=== PATIENT | male | born 1980 | race Caucasian/White ===

== ENCOUNTER 2017-03-05 09:40 | Emergency (ER) | payer OTHER ==
[2017-03-05 09:45] VITALS: BP 134/93; PULSE 77; TEMP 98; BMI 27.1
--- NOTE | 2017-03-05 09:54 | PDOC ---
Post Exposure HPI - General Chief Complaint: Blood/Body Fluid Exposure SJR Stated Complaint: needle stick Time Seen by Provider: 03/05/17 09:41 History Source: Patient Exam Limitations: No Limitations - History of Present Illness Initial Comments: 03/05/17 09:52 36 y/o male sustained a needle stick in the OR today, came in for further evaluation. States to be up to date with Tetanus and Hep B vaccination. Host is low risk for HIV. Patient had guard wire medeiros through skin of 4th and fifth fingers of left hand. No swelling. Bleeding controlled. Timing: just prior to arrival Severity: mild Exposed Location: Left: Finger(s) (4th and 5th) Past History - Past Medical History Allergies/Adverse Reactions: Allergies Penicillins Allergy (Verified 03/05/17 09:41) Home Medications: Ambulatory Orders Albuterol Sulfate [Ventolin Hfa] 2 puff IH [id number] PRN inhaler 01/18/16 Surgical History: Yes: No Surgical History - Immunization History Immunizations Up to Date: Yes - Social History Smoking Status: Current every day smoker Number of Ciarettes Per Day: 20 Alcohol Use: occasionally Drug Use: none Review of Systems - Review of Systems Able to Perform ROS?: Yes Is the patient limited [place] proficient: No Constitutional: No: Chills, Fever Respiratory: No: Cough, Shortness of Breath Cardiac (ROS): No: Chest Pain, Irregular Heart Rate, Palpitations Integumentary: No: Bruising, Erythema, Rash All Other Systems: Reviewed and Negative *Physical Exam - Vital Signs Last Vital Signs Temp Pulse Resp BP Pulse Ox 98 F 77 16 134/93 100 03/05/17 09:41 03/05/17 09:41 03/05/17 09:41 03/05/17 09:41 03/05/17 09:41 - Physical Exam General Appearance: Yes: Nourished, Appropriately Dressed. No: Apparent Distress HEENT: positive: EOMI, JAYCOB, Normal ENT Inspection Neck: positive: Trachea midline, Normal Thyroid, Supple Respiratory/Chest: positive: Lungs Clear, Normal Breath Sounds Cardiovascular: positive: Regular Rhythm, Regular Rate, S1, S2. negative: Murmur Vascular Pulses: Femoral (R): 4+, Femoral (L): 4+, Carotid (R): 4+, Carotid (L) : 4+, Dorsalis-Pedis (R): 4+, Doralis-Pedis (L): 4+ Lymphatic: negative: Adenopathy, Tenderness, Other Musculoskeletal: positive: Normal Inspection. negative: CVA Tenderness Extremity: positive: Normal Capillary Refill, Normal Inspection, Normal Range of Motion Integumentary: positive: Normal Color, Dry, Warm, Other (left 5th finger with puncture wound and 4th finger as well, no active bleeding, swelling or tenderness noted, no ecchymosis). negative: Swelling Neurologic: positive: yeast cake cutter II-XII NML intact, Fully Oriented, Alert, Normal Mood/ Affect, Normal Response, Motor Strength 5/5 Post Exposure - ED Protocol - Exposure Treatment Washing/Decontamination: Soap/Water Source Patient HIV Status:: Unknown Is PEP indicated?: No Prophylaxis for HIV discussed?: No Prophylaxis given?: No Prophylaxis refused?: Yes - Referrals Employee Referred to Employee Health:: Yes Progress Note - Progress Note Progress Note: Host is low risk, non drinker. HIV status unknown. Patient refuses HIV prophylaxis until status of results come back from host. X-ray left hand will be obtained. 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 and will obtain consent from host to check blood *DC/Admit/Observation/Transfer Diagnosis at time of Disposition: Exposure to needle Qualifiers: Encounter type: initial encounter Qualified Code(s): X58.XXXA - Exposure to other specified factors, initial encounter - Discharge Dispostion Disposition: HOME Condition at time of disposition: Stable Admit: No - Referrals - Patient Instructions Printed Discharge Instructions: DI for Accidental Exposure to Body Fluids, DI for Puncture Wound Additional Instructions: Await blood results Keep wound clean If worsen return to ER - Post Discharge Activity Work/School Note: Back to Work
[2017-03-05 12:26] LABS: HIV 1 & 2 AB NEGATIVE; HIV 1 AGp24 NEGATIVE
[2017-03-06 14:15] LABS: HEP B SURFACE AB Non Reactive (.)
== END 2017-03-05 10:49 | disposition home or self-care (01) ==
LOC: FER 09:40
DX: Z77.21 Contact with and (suspected) exposure to potentially hazardous body fluids (principal); X58.XXXA Exposure to other specified factors, initial encounter; Y93.89 Activity, other specified; Y92.234 Operating room of hospital as the place of occurrence of the external cause; Y99.0 Civilian activity done for income or pay; F17.210 Nicotine dependence, cigarettes, uncomplicated
CPT/HCPCS: 36415; 73130-TC-LT; 86704; 86706; 86803; 87340; 87389; 99282-25

== ENCOUNTER 2018-03-17 14:55 | Emergency (ER) | payer OTHER ==
[2018-03-17 14:59] VITALS: BMI 25.7
[2018-03-17 15:37] VITALS: BP 120/84; PULSE 82; TEMP 98.9
--- NOTE | 2018-03-17 15:48 | PDOC ---
Post Exposure HPI - General Chief Complaint: Blood/Body Fluid Exposure SJR Stated Complaint: DRILL STICK Time Seen by Provider: 03/17/18 14:58 - History of Present Illness Initial Comments: 03/17/18 15:42 37 M presenting with fingerstick. Pt states he stuck himself with a drill bit while assisting with a total hip arthroplasty. Pt reports minor bleeding from his fingertip that has since subsided. Pt whose bodily fluids he was exposed to has unknown HIV or hepatitis status. Pt is currently still in OR under anesthesia. Plan is to consent the pt for HIV and Hepatitis testing when awake. Past History - Past Medical History Allergies/Adverse Reactions: Allergies Allergy/AdvReac Type Severity Reaction Status Date / Time Penicillins Allergy Verified 03/17/18 14:56 Home Medications: Ambulatory Orders Albuterol Sulfate [Ventolin Hfa] 2 puff IH [id number] PRN inhaler 01/18/16 Asthma: Yes COPD: No DVT: No - Immunization History Immunization Up to Date: Yes - Suicide/Smoking/Psychosocial Hx Smoking History: Current every day smoker Have you smoked in the past 12 months: Yes Number of Cigarettes Smoked Daily: 20 Information on smoking cessation initiated: No 'Breaking Loose' booklet given: 03/05/17 Hx Alcohol Use: Yes Drug/Substance Use Hx: No Substance Use Type: Alcohol Review of Systems - Review of Systems Comments:: 03/17/18 15:45 "GENERAL/CONSTITUTIONAL: No fever or chills. No weakness. HEAD, EYES, EARS, NOSE AND THROAT: No change in vision. No ear pain or discharge. No sore throat. CARDIOVASCULAR: No chest pain or shortness of breath. RESPIRATORY: No cough, wheezing, or hemoptysis. GASTROINTESTINAL: No nausea, vomiting, diarrhea or constipation. GENITOURINARY: No dysuria, frequency, or change in urination. MUSCULOSKELETAL: No joint or muscle swelling or pain. No neck or back pain. SKIN: + small cut to finger NEUROLOGIC: No headache, vertigo, loss of consciousness, or change in strength/ sensation. ENDOCRINE: No increased thirst. No abnormal weight change. HEMATOLOGIC/LYMPHATIC: No anemia, easy bleeding, or history of blood clots. ALLERGIC/IMMUNOLOGIC: No hives or skin allergy. *Physical Exam - Vital Signs Last Vital Signs Temp Pulse Resp BP Pulse Ox 98.9 F 82 18 120/84 100 03/17/18 14:56 03/17/18 14:56 03/17/18 14:56 03/17/18 14:56 03/17/18 14:56 - Physical Exam Comments: 03/17/18 15:45 "GENERAL: Awake, alert, and fully oriented, in no acute distress. HEAD: No signs of trauma EYES: PERRLA, EOMI, sclera anicteric, conjunctiva clear ENT: Auricles normal inspection, hearing grossly normal, nares patent, oropharynx clear without exudates. Moist mucosa NECK: Nontender, no stepoffs, Normal ROM, supple, no lymphadenopathy, JVD, or masses LUNGS: Breath sounds equal, clear to auscultation bilaterally. No wheezes, and no crackles HEART: Regular rate and rhythm, normal S1 and S2, no murmurs, rubs or gallops ABDOMEN: Soft, nontender, normoactive bowel sounds. No guarding, no rebound. No masses EXTREMITIES: Normal range of motion, no edema. No clubbing or cyanosis. No cords, erythema, or tenderness NEUROLOGICAL: Cranial nerves II through XII intact. 5/5 strength and sensation in all extremities, Normal speech, normal gait, normal cerebellar function SKIN: + <1cm shallow puncture wound to L 2nd digit Medical Decision Making - Medical Decision Making 03/17/18 15:46 37 M with fingerstick from drill bit while assisting in [facility] in OR. Injury is minor and requires no repair. Pt offered HIV post-exposure prophylaxis given unknown status of the patient being operated on ([id number]). However, he refuses stating that he will wait until the pt's HIV and hepatitis tests come back. - HIV test, Hepatitis panel *DC/Admit/Observation/Transfer Diagnosis at time of Disposition: Needle exposure - Discharge Dispostion Disposition: HOME Condition at time of disposition: Stable - Referrals Referrals: Ivan Toussaint MD [Staff Physician] - - Patient Instructions Printed Discharge Instructions: How to Handle Body Fluid Exposure -- Healthcare Worker Additional Instructions: Follow up on your patient's HIV and hepatitis tests. If they test positive OR they do not consent to testing, you must be started on prophylaxis. Follow up with our infectious disease department. Call the number provided to make an appointment within 1 week. - Attestations Physician Attestion: 03/17/18 15:52 I, Dr. Matthias Mckeon MD, attest that this document has been prepared under my direction and personally reviewed by me in its entirety. I further attest, that it accurately reflects all work, treatment, procedures and medical decision -making performed by me.
[2018-03-19 06:07] LABS: HEP.C VIRUS AB 0.1 s/co ratio (0.0-0.9)
== END 2018-03-17 16:10 | disposition home or self-care (01) ==
LOC: FER 14:55
DX: Z77.21 Contact with and (suspected) exposure to potentially hazardous body fluids (principal); W22.8XXA Striking against or struck by other objects, initial encounter; Y93.89 Activity, other specified; Y92.234 Operating room of hospital as the place of occurrence of the external cause; Y99.0 Civilian activity done for income or pay; F17.210 Nicotine dependence, cigarettes, uncomplicated; J45.909 Unspecified asthma, uncomplicated
CPT/HCPCS: 36415; 80074; 87389; 99282-25

== ENCOUNTER 2021-07-08 07:04 | Day surgery (SDC) | payer OTHER ==
[2021-07-05 08:31] VITALS: BMI 24.3
[2021-07-08] MEDS ORDERED: LIDOCAINE HCL/PF 2% SDV 5ML VIAL ONE (07:08)
[2021-07-08] MEDS ORDERED: PROPOFOL 20 ML ONE ×4 (07:08)
[2021-07-08 07:27] VITALS: TEMP 98.2
[2021-07-08 08:59] VITALS: BP 120/74; PULSE 92
== END 2021-07-08 08:50 | disposition home or self-care (01) ==
LOC: FASU-ENDO 07:04
PROVIDERS: ATTEND Internal Medicine Gastroenterology
PROC: 0DB98ZX Excision of Duodenum, Via Natural or Artificial Opening Endoscopic, Diagnostic (ICD-10-PCS; 2021-07-08)
PROC: 0DB68ZX Excision of Stomach, Via Natural or Artificial Opening Endoscopic, Diagnostic (ICD-10-PCS; 2021-07-08)
PROC: 0DBP8ZX Excision of Rectum, Via Natural or Artificial Opening Endoscopic, Diagnostic (ICD-10-PCS; principal; 2021-07-08 07:45)
DX: R19.4 Change in bowel habit (principal); K62.1 Rectal polyp; K57.30 Diverticulosis of large intestine without perforation or abscess without bleeding; K29.50 Unspecified chronic gastritis without bleeding; R63.4 Abnormal weight loss; Z68.24 Body mass index [BMI] 24.0-24.9, adult
CPT/HCPCS: 88305-TC; 88342-TC

== ENCOUNTER 2023-12-04 09:26 | Emergency (ER) | payer OTHER ==
[2023-12-04 09:47] VITALS: BP 120/86; PULSE 84; RESP 15; TEMP 98.6; BMI 22.3
[2023-12-04 10:37] LABS: HEMATOCRIT 48.1 % (35.4-49); MCH 36.1 pg (25.7-33.7); MCHC 33.3 g/dl (32.0-35.9); MEAN CELL VOLUME 108.5 fl (80-96); MEAN PLT VOLUME 8.1 fl (7.5-11.1); PLATELET COUNT 114.2 10^3/uL (134-434); RBC 4.43 10^6/uL (4.00-5.60); RDW 13.6 % (11.9-15.9); WHITE BLOOD COUNT 5.3 10^3/uL (4.0-10.8)
[2023-12-04 10:41] LABS: ADD RBC MORPHOLOGY YES
[2023-12-04 10:44] LABS: ALBUMIN 4.7 g/dl (3.4-5.0); ALK PHOS 59 U/L (45-117); ANION GAP 12 mmol/L (4-13); BILIRUBIN,TOTAL 1.1 mg/dl (0.2-1); CALCIUM 9.6 mg/dl (8.5-10.1); CHLORIDE 103 mmol/L (98-107); CHOLESTEROL 188 mg/dL (50-200); CO2 25 mmol/L (21-32); CREATININE 0.7 mg/dl (0.6-1.3); GLUCOSE,RANDOM 99 mg/dl (74-106); PHOSPHOROUS 4.1 (2.5-4.9); POTASSIUM 3.6 mmol/L (3.5-5.1); SGOT/AST 108 U/L (15-37); SGPT/ALT 97 U/L (7-52); SODIUM 140 mmol/L (136-145); TOT PROT 7.4 g/dl (6.4-8.2)
[2023-12-04 11:46] LABS: PLATELET ESTIMATE DECREASED
[2023-12-04 11:47] LABS: ANISOCYTOSIS FEW
[2023-12-04 12:07] LABS: GAMMA GLUTAMYL TRANSPEPTIDASE 372 U/L (5-85)
[2023-12-04 13:41] LABS: HIV INTERPRETATION NEGATIVE (NEGATIVE)
== END 2023-12-04 10:05 | disposition home or self-care (01) ==
LOC: FER 09:26
DX: S61.200A Unspecified open wound of right index finger without damage to nail, initial encounter (principal); W46.1XXA Contact with contaminated hypodermic needle, initial encounter
CPT/HCPCS: 36415; 80053; 82465; 82977; 84100; 85025; 86704; 86803; 87340; 87389; 87517; 99283-25